=== PATIENT | female | born 1960 | race Caucasian/White ===

== ENCOUNTER 2018-12-28 12:35 | Inpatient (IN) ==
[2018-12-28 13:10] LABS: BASO# 0.02 X1000 (0.0-0.2); BASO% 0.3 % (0.0-0.8); EOS# 0.11 X1000 (0.0-0.7); EOS% 1.5 % (0.0-10.0); HEMATOCRIT 37.7 % (37.0-47.0); HEMOGLOBIN 12.2 g/dL (12.0-16.0); IMM GRAN# 0.04 X1000 (0.0-0.04); IMM GRAN% 0.5 % (0.0-0.5); LYMPH# 1.36 X1000 (1.2-3.4); LYMPH% 18.6 % (20.5-51.1); MCH 29.9 PG (27-31); MCHC 32.4 g/dL (33-37); MCV 92.4 FL (81-99); MONO# 0.35 X1000 (0.11-0.59); MONO% 4.8 % (1.7-9.3); MPV 10.3 FL (7.4-10.4); NEUT# 5.43 X1000 (1.4-6.5); NEUT% 74.3 % (42.2-75.2); PLT 238 X1000 (130-400); RBC 4.08 XMIL (4.2-5.4); RDW 13.6 % (11.5-14.5); WBC 7.31 X1000 (4.8-10.8)
[2018-12-28 14:02] LABS: ALBUMIN 4.1 g/dL (3.5-5.0); CALCIUM 9.2 mg/dL (8.8-10.2); CREATININE 1.2 mg/dL (0.5-0.9); POTASSIUM 3.8 mmol/L (3.5-5.1); TOTAL BILIRUBIN 0.4 mg/dL (0.20-1.00); TOTAL PROTEIN 7.8 g/dL (6.3-8.3)
[2018-12-28] MEDS ORDERED: TORADOL IV ONE (14:10)
[2018-12-28] MEDS ORDERED: ZOFRAN IV ONE (14:11)
[2018-12-28 14:13] LABS: BILIRUBIN URINE NEGATIVE (NEGATIVE); BLOOD URINE NEGATIVE (NEGATIVE); CLARITY SL. CLOUDY (CLEAR); COLOR YELLOW; GLUCOSE URINE NEGATIVE (NEGATIVE); KETONE URINE TRACE mg/dL (NEGATIVE); LEUKOCYTES URINE TRACE (NEGATIVE); NITRITE URINE NEGATIVE (NEGATIVE); PROTEIN URINE 1+(30 mg/dL) mg/dL (NEGATIVE); SP GRAVITY URINE 1.025; UROBILINOGEN URINE NORMAL
[2018-12-28 14:16] LABS: URINE BACTERIA 2+ /HFP; URINE CAST NONE SEEN /LPF; URINE EPITHELIAL CELLS >10 /HPF (<10); URINE WBC <10 /HPF (<10); URINE YEAST NONE SEEN /HPF
[2018-12-28 14:17] LABS: URINE CRYSTAL NONE SEEN /HPF; URINE SOURCE CLEAN CATCH
--- NOTE | 2018-12-28 14:43 | PROVIDER DOCUMENTATION ---
HPI-Abdominal Pain/GI Problem - General Chief Complaint: Abdominal Pain Stated Complaint: ABD PAIN Time Seen by Provider: 12/28/18 14:41 Source: patient Allergies/Adverse Reactions: Patient Allergies Allergy/AdvReac Type Severity Reaction Status Date / Time No Known Allergies Allergy Verified 08/01/17 17:30 Home Medications: Home Medication List Medication Instructions Recorded Confirmed Last Taken Type Temazepam 08/01/17 Unknown History Apixaban [Eliquis] 1 tab PO DAILY 12/28/18 12/28/18 Unknown History Gabapentin 12/28/18 12/28/18 Unknown History Tacrolimus [Prograf] 12/28/18 12/28/18 Unknown History Past History - Adult - PAST MEDICAL HISTORY-ADULT Major Childhood Illnesses: reports: denies history Cardiovascular: reports: denies history Respiratory: reports: denies history Gastrointestinal: reports: denies history Obstetrical/Gynecological: reports: denies history Genitourinary: reports: denies history Musculoskeletal: reports: denies history Neurological: reports: denies history Endocrine/Immune: reports: denies history Other Conditions: reports: denies history - PRIOR SURGERIES/PROCEDURES Surgical/Procedure History: reports: none - IMMUNIZATION STATUS Childhood Immunizations: See Nurse Assessment Flu Vaccine: See Nurse Assessment - FAMILY HISTORY Family History: reviewed, not pertinent Progress - PLAN OF CARE/RESULTS Progress/Plan/Lab Results: Vital Signs - 8 hr 12/28/18 12:42 Temperature 98 F Pulse Rate 94 H Respiratory Rate 18 Blood Pressure 151/98 O2 Sat by Pulse Oximetry 100 Laboratory Results - last 24 hr 12/28/18 12/28/18 12/28/18 12:57 12:57 12:57 WBC 7.31 RBC 4.08 L Hgb 12.2 Hct 37.7 MCV 92.4 MCH 29.9 MCHC 32.4 L RDW Std Deviation 13.6 Plt Count 238 MPV 10.3 Immature Gran % (Auto) 0.5 Neut % (Auto) 74.3 Lymph % (Auto) 18.6 L [place] % (Auto) 4.8 Eos % (Auto) 1.5 Baso % (Auto) 0.3 Immature Gran # (Auto) 0.04 Neut # (Auto) 5.43 Lymph # (Auto) 1.36 [place] # (Auto) 0.35 Eos # (Auto) 0.11 Baso # (Auto) 0.02 Sodium Potassium Chloride Carbon Dioxide Anion Gap BUN Creatinine Estimated GFR/1.73 m2 BUN/Creatinine Ratio Glucose Calculated Osmolality Calcium Total Bilirubin AST ALT Alkaline Phosphatase Total Protein Albumin Globulin Albumin/Globulin Ratio Amylase 34 Lipase Urine Source CLEAN CATCH Urine Color YELLOW Urine Clarity SL. CLOUDY A Urine pH 5.0 Ur Specific [place] 1.025 Urine Protein 1+(30 mg/dL) A Urine Ketones TRACE Urine Blood NEGATIVE Urine Nitrite NEGATIVE Urine Bilirubin NEGATIVE Urine Urobilinogen NORMAL Urine Microscopic RBC Not Reportable Urine WBC TRACE A Urine Microscopic WBC <10 Ur Epithelial Cells >10 A Urine Crystals NONE SEEN Urine Bacteria 2+ Urine Casts NONE SEEN Urine Yeast NONE SEEN Urine Glucose NEGATIVE 12/28/18 12:59 WBC RBC Hgb Hct MCV MCH MCHC RDW Std Deviation Plt Count MPV Immature Gran % (Auto) Neut % (Auto) Lymph % (Auto) [place] % (Auto) Eos % (Auto) Baso % (Auto) Immature Gran # (Auto) Neut # (Auto) Lymph # (Auto) [place] # (Auto) Eos # (Auto) Baso # (Auto) Sodium 139 Potassium 3.8 Chloride 101 Carbon Dioxide 23 L Anion Gap 14 BUN 16 Creatinine 1.2 H Estimated GFR/1.73 m2 46 BUN/Creatinine Ratio 13 Glucose 132 H Calculated Osmolality 281 Calcium 9.2 Total Bilirubin 0.40 AST 19 ALT 16 Alkaline Phosphatase 104 Total Protein 7.8 Albumin 4.1 Globulin 4.0 Albumin/Globulin Ratio 1.0 Amylase Lipase 31 Urine Source Urine Color Urine Clarity Urine pH Ur Specific [place] Urine Protein Urine Ketones Urine Blood Urine Nitrite Urine Bilirubin Urine Urobilinogen Urine Microscopic RBC Urine WBC Urine Microscopic WBC Ur Epithelial Cells Urine Crystals Urine Bacteria Urine Casts Urine Yeast Urine Glucose Orders Category Date Time Status AMYLASE [CHEM] Stat Lab 12/28/18 12:57 Completed CBC WITH DIFF [HEME] Stat Lab 12/28/18 12:57 Completed COMPREHENSIVE METABOLIC PANEL [CHEM] Stat Lab 12/28/18 12:59 Completed LIPASE [CHEM] Stat Lab 12/28/18 12:[address] W/POSS RFLX CULT [URINALYSIS] Stat Lab 12/28/18 12:57 Completed URINE CULTURE [RM] Routine Lab 12/28/18 14:17 Ordered Ketorolac [Toradol] Med 12/28/18 14:10 Discontinued 30 mg IV NOW ONE Ondansetron [Zofran] Med 12/28/18 14:11 Discontinued 4 mg IV NOW ONE Result Diagrams: 12/28/18 12:57 12/28/18 12:59 Departure - Departure Referrals and Follow-Ups: Fabien Coleman DO [Primary Care Provider] -
[2018-12-28] MEDS ORDERED: DILAUDID IV ONE (14:52)
[2018-12-28] MEDS ORDERED: NS 1,000 ML IV ONE ×2 (14:53→16:59)
--- NOTE | 2018-12-28 15:23 | PROVIDER DOCUMENTATION ---
This chart was entered by Radha Witt Scribe, acting as scribe for Tru Castro MD. HPI-Abdominal Pain/GI Problem - General Chief Complaint: Abdominal Pain Stated Complaint: ABD PAIN Time Seen by Provider: 12/28/18 14:41 Source: patient, family (, mother inlaw, sister inlaw) Allergies/Adverse Reactions: Patient Allergies Allergy/AdvReac Type Severity Reaction Status Date / Time hydromorphone [From Dilaudid] AdvReac RASH Verified 12/28/18 17:31 Home Medications: Home Medication List Medication Instructions Recorded Confirmed Last Taken Type Temazepam 08/01/17 Unknown History Apixaban [Eliquis] 1 tab PO DAILY 12/28/18 12/28/18 Unknown History Gabapentin 12/28/18 12/28/18 Unknown History Tacrolimus [Prograf] 12/28/18 12/28/18 Unknown History Docusate Sodium [Colace] 100 mg PO BID #30 capsule 12/29/18 Unknown Rx Ondansetron HCl [Zofran] 4 mg PO Q4H PRN #10 tablet 12/29/18 Unknown Rx Oxycodone HCl/Acetaminophen 1 each PO Q6H PRN #20 tablet 12/29/18 Unknown Rx [Percocet 5-325 mg Tablet] - History of Present Illness-ABD Nature of Presenting Problems: 58 yowf with history of hepatitis C and cirrhosis requiring liver transplant in 03/19 at [facility], Dr. [phone], who presents with sudden onset of achy sharp 8/10 periumbilical pain that radiates to left side with nausea onset 1000am today. Patient also has history of DVT & pulmonary embolism, currently taking Eloquis. Denies fever, chills, chest pain, SOB, diarrhea, constipation, or urinary complaints. Followed by Dr. Coleman. Abdominal Pain Onset Location: reports: periumbilical Pain Radiation: reports: LLQ, back Quality of Pain: reports: aching (constant), sharp (intermittent) Severity in ED: reports: moderate (8/10) Onset/Duration: reports: this morning (1000am) Timing: reports: still present Activities at Onset: reports: moderate activity (was at work) Modifying Factors: improves with: lying down. worse with: movement, palpation Associated Symptoms: reports: back/neck pain (back pain), nausea. denies: chest pain, cough, fever/chills, headaches, shortness of breath, syncope, vomiting Last BM: this morning Dark Stools Present?: reports: none noticed Rectal Bleeding: reports: none # of Diarrhea Episodes: 0 Rectal Pain: reports: none # of Vomiting Episodes: 0 Emesis Description: reports: none Bruising or Bleeding Gums?: No Similar Symptoms Previously?: No Recently seen or treated by another doctor?: No Review of Systems - Adult - REVIEW OF SYSTEMS - ADULT Constitutional: denies: chills, fever Eyes: reports: no symptoms reported Ears, Nose, Mouth & Throat: reports: no symptoms reported Cardiovascular: denies: chest pain, palpitations Respiratory: reports: no symptoms reported. denies: cough, shortness of breath , wheezing Gastrointestinal: reports: see HPI, abdominal pain, nausea. denies: diarrhea, vomiting Genitourinary: reports: no symptoms reported Musculoskeletal: reports: see HPI, back pain. denies: neck pain Integumentary: reports: no symptoms reported Neurological: denies: dizziness/vertigo, headache/migraines Psychiatric: reports: no symptoms reported Endocrine: reports: no symptoms reported Hematologic/Lymphatic: reports: no symptoms reported Allergic/Immunologic: reports: no symptoms reported All Other Systems: Reviewed and Negative Past History - Adult - PAST MEDICAL HISTORY-ADULT Review of Records: reports: Old Records Reviewed, Nursing Assessment Review, Medications Reviewed, Social history reviewed & non-contributory. Major Childhood Illnesses: reports: denies history Cardiovascular: reports: blood clots Respiratory: reports: denies history Gastrointestinal: reports: hepatitis (C), liver disease, other (liver cancer and transplant) Obstetrical/Gynecological: reports: denies history Genitourinary: reports: denies history Musculoskeletal: reports: denies history Hand Dominance: Right Handed Neurological: reports: denies history Psychiatric: reports: denies history Endocrine/Immune: reports: denies history Other Conditions: reports: denies history - PRIOR SURGERIES/PROCEDURES Surgical/Procedure History: reports: cholecystectomy, hysterectomy, other ( liver transplant) - IMMUNIZATION STATUS Childhood Immunizations: See Nurse Assessment Flu Vaccine: See Nurse Assessment - FAMILY HISTORY Family History: reviewed, not pertinent - SOCIAL HISTORY Smoking: denies Substance Use: denies Alcohol Use Frequency: never Living Situation: family Physical Exam-General - PHYSICAL EXAM-ADULT Initial Vital Signs Reviewed: Yes - CONSTITUTIONAL General Appearance: alert, mild distress, obese - EYES Eyes: PERRL/EOMI, pink conjunctivae - HEAD, EARS, NOSE, MOUTH & THROAT HENMT: moist mucous membranes, normal ENT inspection - NECK Neck: non-tender, full range of motion, supple, normal inspection - RESPIRATORY Respiratory: chest non-tender, lungs clear, normal breath sounds - CARDIOVASCULAR Cardiovascular: normal peripheral pulses, regular rate, rhythm - GASTROINTESTINAL (ABDOMEN) Abdominal Exam: soft, guarding, tenderness (periumbilical tenderness, small exquisitely tender knot over left abdomen). negative: distended, rigid, rebound - GENITOURINARY Female Genitalia/Pelvic Exam: deferred Rectal Exam: deferred - LYMPHATIC Lymphatic: no adenopathy - MUSCULOSKELETAL Back Exam: normal inspection, other (left lumbar pain) Extremity: normal range of motion, non-tender, normal inspection, no pedal edema - SKIN Integumentary: normal color, normal turgor, warm/dry - NEUROLOGIC Neurologic: grossly normal, no motor/sensory deficits - PSYCHIATRIC Psych/Mental Status: normal mood/affect, normal thought content, normal thought process, oriented x 3 Progress - PLAN OF CARE/RESULTS Progress/Plan/Lab Results: Vital Signs - 8 hr 12/28/18 12:42 Temperature 98 F Pulse Rate 94 H Respiratory Rate 18 Blood Pressure 151/98 O2 Sat by Pulse Oximetry 100 Laboratory Results - last 24 hr 12/28/18 12/28/18 12/28/18 12:57 12:57 12:57 WBC 7.31 RBC 4.08 L Hgb 12.2 Hct 37.7 MCV 92.4 MCH 29.9 MCHC 32.4 L RDW Std Deviation 13.6 Plt Count 238 MPV 10.3 Immature Gran % (Auto) 0.5 Neut % (Auto) 74.3 Lymph % (Auto) 18.6 L [place] % (Auto) 4.8 Eos % (Auto) 1.5 Baso % (Auto) 0.3 Immature Gran # (Auto) 0.04 Neut # (Auto) 5.43 Lymph # (Auto) 1.36 [place] # (Auto) 0.35 Eos # (Auto) 0.11 Baso # (Auto) 0.02 Sodium Potassium Chloride Carbon Dioxide Anion Gap BUN Creatinine Estimated GFR/1.73 m2 BUN/Creatinine Ratio Glucose Calculated Osmolality Calcium Total Bilirubin AST ALT Alkaline Phosphatase Total Protein Albumin Globulin Albumin/Globulin Ratio Amylase 34 Lipase Urine Source CLEAN CATCH Urine Color YELLOW Urine Clarity SL. CLOUDY A Urine pH 5.0 Ur Specific [place] 1.025 Urine Protein 1+(30 mg/dL) A Urine Ketones TRACE Urine Blood NEGATIVE Urine Nitrite NEGATIVE Urine Bilirubin NEGATIVE Urine Urobilinogen NORMAL Urine Microscopic RBC Not Reportable Urine WBC TRACE A Urine Microscopic WBC <10 Ur Epithelial Cells >10 A Urine Crystals NONE SEEN Urine Bacteria 2+ Urine Casts NONE SEEN Urine Yeast NONE SEEN Urine Glucose NEGATIVE 12/28/18 12:59 WBC RBC Hgb Hct MCV MCH MCHC RDW Std Deviation Plt Count MPV Immature Gran % (Auto) Neut % (Auto) Lymph % (Auto) [place] % (Auto) Eos % (Auto) Baso % (Auto) Immature Gran # (Auto) Neut # (Auto) Lymph # (Auto) [place] # (Auto) Eos # (Auto) Baso # (Auto) Sodium 139 Potassium 3.8 Chloride 101 Carbon Dioxide 23 L Anion Gap 14 BUN 16 Creatinine 1.2 H Estimated GFR/1.73 m2 46 BUN/Creatinine Ratio 13 Glucose 132 H Calculated Osmolality 281 Calcium 9.2 Total Bilirubin 0.40 AST 19 ALT 16 Alkaline Phosphatase 104 Total Protein 7.8 Albumin 4.1 Globulin 4.0 Albumin/Globulin Ratio 1.0 Amylase Lipase 31 Urine Source Urine Color Urine Clarity Urine pH Ur Specific [place] Urine Protein Urine Ketones Urine Blood Urine Nitrite Urine Bilirubin Urine Urobilinogen Urine Microscopic RBC Urine WBC Urine Microscopic WBC Ur Epithelial Cells Urine Crystals Urine Bacteria Urine Casts Urine Yeast Urine Glucose Orders Category Date Time Status AMYLASE [CHEM] Stat Lab 12/28/18 12:57 Completed CBC WITH DIFF [HEME] Stat Lab 12/28/18 12:57 Completed COMPREHENSIVE METABOLIC PANEL [CHEM] Stat Lab 12/28/18 12:59 Completed LIPASE [CHEM] Stat Lab 12/28/18 12:[address] W/POSS RFLX CULT [URINALYSIS] Stat Lab 12/28/18 12:57 Completed URINE CULTURE [RM] Routine Lab 12/28/18 14:17 Ordered Ketorolac [Toradol] Med 12/28/18 14:10 Discontinued 30 mg IV NOW ONE Ondansetron [Zofran] Med 12/28/18 14:11 Discontinued 4 mg IV NOW ONE dr graham is her liver dr at [facility] Result Diagrams: 12/28/18 12:57 12/28/18 12:59 - REASSESSMENT Reassessment #1 Time Reassessed: 14:48 (pain has improved after post pain medicatins) Status: improving Reassessment #2 Time Reassessed: 15:36 Status: unchanged Reassessment Comment: dr castro at bedside - CT/MRI 1 CT Study: Abdomen, Pelvis Impression: See EMR Report (EXAM: CT ABD/PELVIS W/IV CONT ONLY HISTORY: abdominal pain TECHNIQUE: CT abdomen and pelvis with intravenous contrast COMPARISON: None. FINDINGS: The gallbladder has been removed. There is fatty infiltration of the liver. Normal spleen, pancreas, and right adrenal gland. There is an 18 x 22 mm left adrenal nodule. Normal kidneys. No hydronephrosis. Moderate atherosclerosis. No aortic aneurysm. Normal appendix. No abscess. There are several air and fluid distended loops of small bowel. A dilated loop extends into an anterior abdominal wall hernia just above and to the right of the umbilicus. The bowel loop out of this is not dilated. The urinary bladder is moderately distended and is normal. The uterus has been removed. No pelvic mass. IMPRESSION: 1.Incarcerated hernia just above and to the right of the umbilicus containing a dilated small bowel loop 2.Cholecystectomy 3.Fatty infiltration of the liver 4.Hysterectomy This report was discussed with Dr. Castro in the [place] emergency room on 12/28/2018 at 3:30 PM and was readback. This exam was performed using automated exposure control, adjustment of mA or kV according to patient size, and/or use of iterative reconstruction technique. Electronically signed by Bryan Lopez 12/28/2018 3:33 PM 1533 Interpreting Physician: Bryan Lopez MD Dictated Date/Time: 12/28/18 1527 cc: Tru Castro MD; Fabien Coleman DO) - CONSULTS/PCP/HOSPITALIST Notification #1 *Consult/PCP/Hospitalist*: dr martinez surgeon Time Discussed: 15:33 Reason/Comments: informed of encarcerated abdominal wall hernia Consult Disposition: Will see in ED Departure - Departure Date of Disposition Decision: 12/28/18 Time of Disposition Decision: 15:00 DIAGNOSIS: Incarcerated hernia of abdominal cavity Disposition: ADMITTED INPATIENT 09 Certified Medical Emergency: Emergent Condition: Stable - Critical Care Note This patient required my direct & personal management of CC.: Yes Total Time (mins): 39 Critical Care Statement: This patient required my direct personal management to treat or rule out processes, the absence of which, could potentiallly result in sudden, clinically significant life or limb threatening deterioration. Attestation - Physician/ AGUEDA Attestation Patient care was provided by Advanced Practice Provider:: No The physician spent face to face time with patient:: Yes Advanced Practice Provider documentation review:: Supervising physician onsite and consulted in the evaluation and care of this patient. The physician did have a face to face encounter with the patient. This chart was documented by the indicated scribe, (Radha Witt Scribe) and accurately reflects the services I performed and decisions made by me, Tru Castro MD, as attested by the provider's signature.
--- NOTE | 2018-12-28 15:35 | Diag Imaging Result Doc PS360 ---
EXAM: CT ABD/PELVIS W/IV CONT ONLY HISTORY: abdominal pain TECHNIQUE: CT abdomen and pelvis with intravenous contrast COMPARISON: None. FINDINGS: The gallbladder has been removed. There is fatty infiltration of the liver. Normal spleen, pancreas, and right adrenal gland. There is an 18 x 22 mm left adrenal nodule. Normal kidneys. No hydronephrosis. Moderate atherosclerosis. No aortic aneurysm. Normal appendix. No abscess. There are several air and fluid distended loops of small bowel. A dilated loop extends into an anterior abdominal wall hernia just above and to the right of the umbilicus. The bowel loop out of this is not dilated. The urinary bladder is moderately distended and is normal. The uterus has been removed. No pelvic mass. IMPRESSION: 1.Incarcerated hernia just above and to the right of the umbilicus containing a dilated small bowel loop 2.Cholecystectomy 3.Fatty infiltration of the liver 4.Hysterectomy This report was discussed with Dr. Castro in the [place] emergency room on 12/28/2018 at 3:30 PM and was readback. This exam was performed using automated exposure control, adjustment of mA or kV according to patient size, and/or use of iterative reconstruction technique. Electronically signed by Bryan Lopez 12/28/2018 3:33 PM
[2018-12-28] MEDS ORDERED: ZOFRAN IV PRN (16:59)
[2018-12-28] MEDS ORDERED: MORPHINE IV ONE (16:59)
[2018-12-28] MEDS ORDERED: DIPRIVAN 1% ONE (17:18)
[2018-12-28] MEDS ORDERED: QUELICIN (DOSE) ONE (17:20)
[2018-12-28] MEDS ORDERED: XYLOCAINE-MPF 2% ONE (17:20)
[2018-12-28] MEDS ORDERED: SENSORCAINE-MPF 0.5%/EPI 1:200,000 ONE (18:33)
[2018-12-28] MEDS ORDERED: KEFZOL 1 GM/D5W 2 GM/100 ML IVPB ONE (18:38)
[2018-12-28] MEDS ORDERED: DECADRON ONE (18:54)
[2018-12-28] MEDS ORDERED: ROBINUL ONE (18:54)
[2018-12-28] MEDS ORDERED: ZEMURON ONE (18:54)
[2018-12-28] MEDS ORDERED: ZOFRAN ONE (18:54)
[2018-12-28] MEDS ORDERED: NEOSTIGMINE ONE (18:56)
[2018-12-28] MEDS ORDERED: FENTANYL ONE (18:56)
[2018-12-28] MEDS: DILAUDID ONE ×6 (19:50→20:51)
[2018-12-28] MEDS ORDERED: NS 1,000 ML ONE (20:15)
--- NOTE | 2018-12-28 20:35 | HISTORY AND PHYSICAL ---
DATE: 12/28/2018 HISTORY OF PRESENT ILLNESS: This 58-year-old female with recent history of liver transplant for hepatocellular carcinoma in the setting of hepatitis C. She is an RN here in town. She presented to [facility] with acute onset of periumbilical abdominal pain. Denies any nausea or vomiting. Was in her usual state of health prior to this. CT scan was obtained that showed a periumbilical hernia that possibly contains a loop of small bowel, but no evidence of obstruction. She is hemodynamically stable. MEDICAL HISTORY: 1. History of hepatitis C and hepatocellular carcinoma with recent liver transplant in March. 2. Orthotopic liver transplant. 3. She has had a hysterectomy and diagnostic laparoscopy. 4. DVT on Xarelto. SOCIAL HISTORY: No tobacco, alcohol, or drugs. She works as a nurse. FAMILY HISTORY: Reviewed and noncontributory. REVIEW OF SYSTEMS: Ten point negative. PHYSICAL EXAMINATION: Vital Signs: On exam, temperature is 98 degrees, pulse 94, blood pressure 151/98, oxygen saturation 100 percent. She is 200 pounds, 5 feet 5 inches. General: She is alert, in no acute distress. HEENT: No scleral icterus. Neck: No cervical mass. Cardiovascular: Normal rate. Pulmonary: No increased work of breathing. Abdomen: Soft. There are bilateral subcostal incisions. There is tenderness in the periumbilical location, but no skin changes. There is a palpable hernia that is not reducible. Integument: Warm and dry. Extremities: No lower extremity edema on peripheral vascular exam. Neurologic: No gross deficits. Psychiatric: Appropriate affect. Lymphatic: No cervical adenopathy. LABS AND X-RAYS: I reviewed her labs and her CT scan. White count is normal. LFTs are normal. Creatinine is 1.2. ASSESSMENT AND PLAN: This is a 58-year-old female with incarcerated umbilical hernia. The incisional hernia related to a previous gynecologic laparoscopic trocar site. We discussed risk of bleeding, infection, perioperative complication including wound infection, recurrence, possibility of a bowel resection, all other indicated procedures. I have also discussed with the liver transplant surgeon on-call at [facility]. They recommend continuing Prograf perioperatively and otherwise resume as normal. She is anticoagulated on Xarelto. We did discuss that her risk of bleeding is higher, but that this is an emergent operation. We discussed the likelihood of mesh avoidance in an emergent situation, and that this may increase the likelihood of hernia recurrence. We will proceed to the operating room emergently. cc: Saurabh Boyd MD
--- NOTE | 2018-12-28 21:26 | OPERATIVE NOTE ---
PROCEDURE DATE: 12/28/2018 PREOPERATIVE DIAGNOSIS: Incarcerated ventral hernia. POSTOPERATIVE DIAGNOSIS: Incarcerated ventral hernia. PROCEDURE PERFORMED: Repair of incarcerated ventral hernia. ESTIMATED BLOOD LOSS: 5 mL. SPECIMENS: None. ANESTHESIA: General with local. INDICATION: A 58-year-old female, who has got a recent history of liver transplant. She had presented with acute onset of anterior abdominal wall discomfort in the periumbilical location. CT scan showed evidence of incarcerated hernia. OPERATIVE FINDINGS: Fat containing supraumbilical midline hernia, very small defect. No evidence of ischemia. No incarcerated bowel. OPERATIVE NOTE: Risks, benefits, alternatives discussed with the patient. She consented to the procedure. She was seen preoperatively and surgical site was confirmed. Taken to the operating room and placed in the supine position. General anesthesia induced without complication. All bony prominences were padded. Her abdomen is prepped with chlorhexidine solution and draped in the usual fashion. After time-out, we made a supraumbilical incision, carried this down to the level of the fascia and identified the defect. We circumferentially dissected out the hernia. It was well perfused, but was densely incarcerated as it was a very small neck defect. As such, we had to extend the fascial defect superior and inferiorly to allow reduction into the abdomen, but we were able do this. We did open the hernia sac to make sure there was no incarcerated bowel. There was not. It was only omental fat, but we were able to reduce this back in the abdomen. The fascial edges were healthy, and we closed this with interrupted 0 Prolene sutures along the midline with no tension. We irrigated the superficial wound, confirmed hemostasis, reapproximated Christen's layer and then closed the skin with 3-0 Vicryls. We then closed the skin with surgical clips. She tolerated this well. A gauze dressing was applied, as well as an abdominal binder. She was awoken, transferred to recovery. I spoke with the family. cc: Saurabh Boyd MD
[2018-12-28] MEDS ORDERED: KEFZOL 2 GM/D5W 2 GM/50 ML IVPB IV ONE (21:46)
[2018-12-29] MEDS: MORPHINE IV PRN ×3 (00:17→08:52)
[2018-12-29] MEDS: PROGRAF PO SCH ×2 (02:05→08:42)
[2018-12-29 07:19] VITALS: BP 122/83
[2018-12-29] MEDS ORDERED: PERIDEX MT SCH (09:00)
--- NOTE | 2018-12-29 11:26 | DISCHARGE SUMMARY ---
ADMISSION DATE: 12/28/2018 DISCHARGE DATE: 12/29/2018 ADMITTING DIAGNOSIS: Incarcerated ventral hernia. POSTOPERATIVE DIAGNOSIS: Incarcerated ventral hernia. PROCEDURE PERFORMED: Open repair of incarcerated ventral hernia. Date of surgery was 12/28/2018. HISTORY OF PRESENT ILLNESS: This is a 58-year-old female with recent history of liver transplant, who presented with a painful area superior to her umbilicus at a previous incision. CT scan showed incarcerated hernia. She was taken to the operating room for this. HOSPITAL COURSE: She was taken to the operating room on the evening of her admission for above procedure. For details, please see dictated operative note. Postoperatively, she did well. Her diet was advanced and she tolerated this. Her pain was controlled, and hemodynamically she remained stable. Her incision wound was flat, she had an abdominal binder, and she was felt safe for discharge. DISCHARGE MEDICATIONS: She will continue her Prograf at previous dose, and will resume her Xarelto tomorrow. Previous home medication with Percocet, Zofran, and Colace, prescription provided today. DISPOSITION: Home to self-care with the care of her family. DISCHARGE INSTRUCTIONS: Discharge instructions were given in written and verbal format. She will remove her dressing in 48 hours, and come to the office in a week for staple removal, and avoid heavy lifting greater than 10 pounds, wearing her abdominal binder at all times. cc: Saurabh Boyd MD
== END 2018-12-29 09:23 | disposition home or self-care (01) | DRG 354 ==
LOC: P.ED 12:35 → DSC 18:46 → 4N 21:31
PROVIDERS: ADMIT Surgery; ATTEND Surgery
CPT/HCPCS: 74177; 80053; 81001; 82150; 83690; 85025; 87077; 87088; 87186; 94761; 94799; 96361; 96374; 96375; 99285; 99291; A9270; J0330; J0690; J1100; J1170; J1885; J2270; J2405; J3010; J7030; Q9967